=== PATIENT | female | born 1995 ===

== ENCOUNTER 2022-03-07 23:56 | Observation (INO) | payer OTHER, MEDICAID ==
[~2022-03-07] VITALS: Ht 175.3 cm; Wt 106.6 kg
[2022-03-08] MEDS ORDERED: FERR-7 PO (03:11)
[2022-03-08] MEDS ORDERED: PREN27TA7 OR (03:12)
[2022-03-08] MEDS ORDERED: PREN-96 PO (03:13)
== END 2022-03-08 03:26 | disposition home or self-care (01) ==
LOC: LDRP 23:56
PROVIDERS: ADMIT Obstetrics & Gynecology; ATTEND Obstetrics & Gynecology
DX: O62.9 Abnormality of forces of labor, unspecified (principal); O99.891 Other specified diseases and conditions complicating pregnancy; M54.9 Dorsalgia, unspecified; R10.9 Unspecified abdominal pain; Z3A.37 37 weeks gestation of pregnancy
CPT/HCPCS: 59025; 76815; 81002; 84112; 94760; G0378; Q0114

== ENCOUNTER 2022-03-11 21:03 | Observation (INO) | payer OTHER, MEDICAID ==
[~2022-03-11] VITALS: Ht 175.3 cm; Wt 78.9 kg
[~2022-03-11 21:03] MED LIST: FERR-7 PO; PREN-96 PO
[2022-03-11] MEDS ORDERED: PREN-96 OR (23:42)
== END 2022-03-12 | disposition home or self-care (01) ==
LOC: LDRP 21:03
PROVIDERS: ADMIT Obstetrics & Gynecology; ATTEND Obstetrics & Gynecology
DX: O62.9 Abnormality of forces of labor, unspecified (principal); O99.333 Smoking (tobacco) complicating pregnancy, third trimester; F17.290 Nicotine dependence, other tobacco product, uncomplicated; Z3A.37 37 weeks gestation of pregnancy
CPT/HCPCS: 59025; 81002; 84112; 94760; G0378; Q0114